=== PATIENT | male | born 1980 | race Caucasian/White ===

== ENCOUNTER 2021-07-26 15:14 | Emergency (ER) | payer OTHER, SELFPAY ==
[2021-07-26 15:27] VITALS: BP 129/75; PULSE 61; RESP 16; TEMP 36.6; O2SAT 100; BMI 23.1
--- NOTE | 2021-07-26 15:33 | DI.RAD.S_ITS ---
PROCEDURE: XR TOE RT MIN 2V INDICATIONS: infection right great toe TECHNIQUE: 3 views of the 1st toe(s) acquired. COMPARISON: None. FINDINGS: Bones: No fractures or dislocations. No suspicious bony lesions. Soft tissues: No suspicious soft tissue densities. Mild soft tissue swelling IMPRESSION: Mild generalized soft tissue swelling without fracture or foreign body. Approved by: Ephraim Pérez M.D. on 07/26/2021 at 15:19
--- NOTE | 2021-07-26 15:41 | ED.SKABFB ---
HPI - Skin/Abscess/Foreign Bdy General Chief complaint: Skin/Abscess/Foreign Body Stated complaint: Infection on RT foot/Toe Time Seen by Provider: 07/26/21 15:36 History of Present Illness HPI narrative: Patient is a 41-year-old male presents with right toe pain and redness. He says it has been ongoing for about 10 days but has progressively gotten more red today he woke up and noticed that he had streaking up most of his lower leg. It does stop below the knee. He denies any fever or chills. No prior history of MRSA. He denies any fever or chills. Related Data Previous Rx's Medication Instructions Recorded cephalexin 500 mg capsule 500 mg PO TID 7 Days #21 cap 07/26/21 Allergies Allergy/AdvReac Type Severity Reaction Status Date / Time No Known Drug Allergies Allergy Verified 07/26/21 15:27 Review of Systems Review of Systems Narrative: GENERAL: Denies chills,fever HEENT: Denies throat pain RESPIRATORY: Denies dyspnea, cough, wheezing CARDIOVASCULAR: Denies chest pain, palpitations GASTROINTESTINAL: Denies nausea, vomiting MUSCULOSKELETAL: Denies extremity pain, injury SKIN: See HPI NEUROLOGIC: Denies weakness, dizziness, headache, numbness 8 point review of systems is negative except for those stated above and HPI Patient History Social History Smoking Status: Never smoker Smoking Status: Never smoker alcohol intake frequency: a few times a week Substance Use Type: does not use Exam Initial Vital Signs Initial Vital Signs: Vital Signs Temperature 97.8 F 07/26/21 15:27 Pulse Rate 61 07/26/21 15:27 Respiratory Rate 16 07/26/21 15:27 Blood Pressure 129/75 07/26/21 15:27 Pulse Oximetry 100 07/26/21 15:27 GENERAL: Well-appearing, well-nourished and in no acute distress. CARDIOVASCULAR: peripheral pulses in tact, cap refill <2 sec RESPIRATORY: No respiratory distress, speaks in full sentences without difficulty EXTREMITIES: Normal range of motion, no clubbing or edema. Neurovascularly intact NEUROLOGICAL: Cranial nerves II through XII grossly intact. Normal gait and speech. SKIN: Right great toe paronychia noted around the cuticle he has streaking up anterior part of his leg Procedures Abscess I/D I&D #1: Site: foot (Big toe) Side (if applicable): right Local Anesthetic: lidocaine 1% Amount of anesthesia used (mL): 2 Technique: incised with #11 blade Amount of fluid expressed (mL): 0.5 Irrigation: No Nerve Block Nerve Block 1: Local Anesthetic: lidocaine 1% Amount of anesthesia used (mL): 2 Side: right Nerve Blocks: digital Procedure Successful: Yes Patient Tolerated Procedure: Well Complications: none Course Orders Ordered: ED Orders 07/26/21 15:33 XR toe RT min 2V Stat 07/26/21 15:50 Complete Blood Count AUTO DIFF Stat Comprehensive Metabolic Panel Stat Lactate (Lactic Acid) Stat Procalcitonin Stat 07/26/21 15:55 Wound Culture and Gram Stain Stat 07/26/21 16:11 Blood Culture Stat Discontinued Medications Sodium Chloride (Normal Saline 0.9%) 1,000 mls @ 1,000 mls/hr IV BOLUS ONE Stop: 07/26/21 16:31 Last Admin: 07/26/21 15:52 Dose: Not Given Documented by: ZAYRA Ceftriaxone Sodium 1,000 mg/ (Sodium Chloride) 100 mls @ 200 mls/hr IV NOW ONE Stop: 07/26/21 15:46 Last Infusion: 07/26/21 17:02 Dose: 0 mls/hr Documented by: Admin: 07/26/21 16:16 Dose: 200 mls/hr Documented by: NATHANIEL Lidocaine HCl (Lidocaine 1% (Pf)) 2 ml SUBCUT NOW ONE Stop: 07/26/21 15:46 Last Admin: 07/26/21 15:58 Dose: 2 ml Documented by: NATHANIEL Vital Signs Vital signs: Vital Signs - 8 hr 07/26/21 15:27 07/26/21 17:28 Temperature 97.8 F 97.7 F Pulse Rate 61 60 Respiratory Rate 16 16 Blood Pressure 129/75 117/65 Pulse Oximetry 100 100 MDM - Skin/Abscess/Foreign Bdy Lab Data Result diagrams: 07/26/21 15:50 07/26/21 15:50 Labs: Lab Results 07/26/21 07/26/21 07/26/21 Range/Units 15:50 15:50 15:50 WBC 6.8 (4.5-11.0) X10^3/uL RBC 4.40 L (4.5-5.9) X10^6/uL Hgb 14.1 (13.5-17.5) g/dL Hct 41.1 (41-53) % MCV 93.4 (80-100) fL MCH 32.0 (26-34) PG MCHC 34.3 (30-36) % RDW 12.2 (11.6-14.8) % Plt Count 141 L (150-400) X10^3/uL Neut % (Auto) 53.5 (50-75) % Lymph % (Auto) 33.8 (25-40) % [place] % (Auto) 9.6 (3-14) % Eos % (Auto) 2.5 (2-4) % Baso % (Auto) 0.6 (0-2) % Neut # (Auto) 3700 (4619-2384) /uL Lymph # (Auto) 2300 (5371-6609) /uL [place] # (Auto) 700 (0-900) /uL Eos # (Auto) 200 (0-450) /uL Baso # (Auto) 0 (0-100) /uL ESR Sodium 139 (137-145) mmol/L Potassium 4.0 (3.4-5.1) mmol/L Chloride 102 (98-107) mmol/L Carbon Dioxide 29 (22-32) mmol/L BUN 15 (9-20) mg/dL Creatinine 0.76 (0.66-1.25) mg/dL Estimated GFR > 60.0 (>60) mL/min BUN/Creatinine Ratio 19.7 (6-22) Glucose 90 (70-100) mg/dL Lactate 0.7 (0.7-2.1) mmol/L Calcium 9.6 (8.4-10.2) mg/dL Total Bilirubin 1.3 (0.2-1.3) mg/dL AST 25 (17-59) IU/L ALT 20 (<50) IU/L Alkaline Phosphatase 76 (38-126) U/L C-Reactive Protein Total Protein 7.5 (6.3-8.2) g/dL Albumin 4.6 (3.5-5.0) g/dL Globulin 2.9 (1.7-4.1) g/dL Albumin/Globulin Ratio 1.6 (1.0-2.8) Lipase Cancelled Procalcitonin 0.04 (<0.5) ng/mL 07/26/21 07/26/21 Range/Units 15:50 15:50 WBC (4.5-11.0) X10^3/uL RBC (4.5-5.9) X10^6/uL Hgb (13.5-17.5) g/dL Hct (41-53) % MCV (80-100) fL MCH (26-34) PG MCHC (30-36) % RDW (11.6-14.8) % Plt Count (150-400) X10^3/uL Neut % (Auto) (50-75) % Lymph % (Auto) (25-40) % [place] % (Auto) (3-14) % Eos % (Auto) (2-4) % Baso % (Auto) (0-2) % Neut # (Auto) (3894-0401) /uL Lymph # (Auto) (6908-2545) /uL [place] # (Auto) (0-900) /uL Eos # (Auto) (0-450) /uL Baso # (Auto) (0-100) /uL ESR Cancelled Sodium (137-145) mmol/L Potassium (3.4-5.1) mmol/L Chloride (98-107) mmol/L Carbon Dioxide (22-32) mmol/L BUN (9-20) mg/dL Creatinine (0.66-1.25) mg/dL Estimated GFR (>60) mL/min BUN/Creatinine Ratio (6-22) Glucose (70-100) mg/dL Lactate (0.7-2.1) mmol/L Calcium (8.4-10.2) mg/dL Total Bilirubin (0.2-1.3) mg/dL AST (17-59) IU/L ALT (<50) IU/L Alkaline Phosphatase (38-126) U/L C-Reactive Protein Cancelled Total Protein (6.3-8.2) g/dL Albumin (3.5-5.0) g/dL Globulin (1.7-4.1) g/dL Albumin/Globulin Ratio (1.0-2.8) Lipase Procalcitonin (<0.5) ng/mL Imaging Data Extremity x-ray #1: Radiologist's Impression: PROCEDURE:? XR TOE RT MIN 2V ? INDICATIONS:? infection right great toe ? TECHNIQUE:? 3 views of the 1st toe(s) acquired.? ? COMPARISON:? None. ? FINDINGS:? ? Bones:? No fractures or dislocations.? No suspicious bony lesions.? ? Soft tissues:? No suspicious soft tissue densities.? Mild soft tissue swelling ? IMPRESSION:? Mild generalized soft tissue swelling without fracture or foreign body. ? ? ? Approved by: Ephraim Pérez M.D. on 07/26/2021 at 15:19? [facility] Narrative Medical decision making narrative: Patient is found to have paronychia on the right big toe. It is I&D there is purulent drainage. He does have a streaking up his leg but overall appears well. He is afebrile he has no leukocytosis. He is given 1 dose of Rocephin in the emergency department. I discussed with him warning signs and when to return to the emergency department. Blood cultures and culture are pending. Discharge Plan Departure Patient Disposition: Home Clinical Impression: Paronychia Instructions: Paronychia Activity Restrictions/Additional Instructions: *You have been diagnosed with paronychia of right big toe *What to do: At this time he actually should start feeling better. We drained some pus out of the area in you are given a dose of IV antibiotics. Continue taking antibiotics as directed. Keep toe clean and dry with soap and water. May apply antibiotic ointment 1-2 times daily *Continue to take medications as directed Keflex 500 mg 3 times a day for 7 days *Follow up with your primary care provider in 2-3 days *Return to ER if you should have increasing redness, fever, increasing streaking or any new, worsening or concerning symptoms Prescriptions: New cephalexin 500 mg capsule 500 mg PO TID 7 Days Qty: 21 RF: 0 Referrals: [facility] [Provider Group]
[2021-07-26] MEDS: LIDOCAINE 1% (PF) 2 ML SUBCUT (15:58)
[2021-07-26 16:00] LABS: Add Manual Diff / Slide Review NO; Basophils Absolute Auto 0 /uL (0-100); Basophils Percent Auto 0.6 % (0-2); Eosinophils Absolute Auto 200 /uL (0-450); Eosinophils Percent Auto 2.5 % (2-4); Hematocrit 41.1 % (41-53); Hemoglobin 14.1 g/dL (13.5-17.5); Lymphocytes Absolute Auto 2300 /uL (1100-4500); Lymphocytes Percent Auto 33.8 % (25-40); Mean Corpuscular HGB Conc 34.3 % (30-36); Mean Corpuscular Volume 93.4 fL (80-100); Monocytes Absolute Auto 700 /uL (0-900); Monocytes Percent Auto 9.6 % (3-14); Neutrophils Absolute Auto 3700 /uL (1500-7000); Neutrophils Percent Auto 53.5 % (50-75); Platelet Count 141 X10^3/uL (150-400); Red Cell Distribution Width 12.2 % (11.6-14.8); White Blood Cell Count 6.8 X10^3/uL (4.5-11.0)
[2021-07-26 16:11] LABS: Alanine Aminotransferase 20 IU/L (<50); Albumin 4.6 g/dL (3.5-5.0); Albumin Globulin Ratio 1.6 (1.0-2.8); Alkaline Phosphatase 76 U/L (38-126); Aspartate Aminotransferase 25 IU/L (17-59); BUN Creatinine Ratio 19.7 (6-22); Bilirubin Total 1.3 mg/dL (0.2-1.3); Blood Urea Nitrogen 15 mg/dL (9-20); Calcium 9.6 mg/dL (8.4-10.2); Carbon Dioxide 29 mmol/L (22-32); Chloride 102 mmol/L (98-107); Estimated Glomerular Filt Rate > 60.0 mL/min (>60); Globulin 2.9 g/dL (1.7-4.1); Glucose 90 mg/dL (70-100); HEMOLYSIS < 15 (0-50); Sodium 139 mmol/L (137-145); Total Protein 7.5 g/dL (6.3-8.2)
[2021-07-26 16:12] LABS: Lactate (Lactic Acid) 0.7 mmol/L (0.7-2.1)
[2021-07-26] MEDS: cefTRIAXone 1,000 MG in SODIUM CHLORIDE 0.9% 100 ML 200 ML IV (16:16)
[2021-07-26 16:28] LABS: Procalcitonin 0.04 ng/mL (<0.5)
[2021-07-26 17:28] VITALS: BP 117/65; PULSE 60; RESP 16; TEMP 36.5; O2SAT 100
[2021-07-27 11:24] LABS: Acinetobacter baumannii Not Detected (Not Detect); Candida albicans Not Detected (Not Detect); Candida glabrata Not Detected (Not Detect); Candida krusei Not Detected (Not Detect); Candida parapsilosis Not Detected (Not Detect); Candida tropicalis Not Detected (Not Detect); E. coli Not Detected (Not Detect); Enterobacter cloacae complex Not Detected (Not Detect); Enterobacteriaceae species Detected (Not Detect); Enterococcus species Not Detected (Not Detect); Haemophilus influenzae Not Detected (Not Detect); KPC (carbapenem-resist gene) Not Detected (Not Detect); Listeria monocytogenes Not Detected (Not Detect); Methicillin-resistant gene Not Detected (Not Detect); Neisseria meningitidis Not Detected (Not Detect); Proteus species Not Detected (Not Detect); Pseudomonas aeruginosa Not Detected (Not Detect); Serratia marcescens Not Detected (Not Detect); Staphylococcus species Not Detected (Not Detect); Streptococcus agalactiae (Gr B Not Detected (Not Detect); Streptococcus pneumonia Not Detected (Not Detect); Streptococcus pyogenes (Gr A) Not Detected (Not Detect); Streptococcus species Not Detected (Not Detect); Vancomycin-rest genes A/B Not Detected (Not Detect)
== END 2021-07-26 17:31 | disposition home or self-care (01) ==
PROVIDERS: Emergency Provider Emergency Medicine
DX: L03.031 Cellulitis of right toe (principal)
CPT/HCPCS: 10060; 36415; 64450; 73660; 80053; 83605; 84145; 85025; 87040; 87070; 87075; 87077; 87150; 87186; 87205; 96365; 99284; J0696

== ENCOUNTER 2021-07-28 22:18 | Emergency (ER) | payer OTHER, SELFPAY ==
[2021-07-28 22:21] VITALS: BP 146/81; PULSE 61; RESP 16; TEMP 36.5; O2SAT 100
[2021-07-28 22:53] LABS: Add Manual Diff / Slide Review NO; Basophils Absolute Auto 0 /uL (0-100); Basophils Percent Auto 0.7 % (0-2); Eosinophils Absolute Auto 200 /uL (0-450); Eosinophils Percent Auto 3.2 % (2-4); Hematocrit 42.8 % (41-53); Hemoglobin 14.6 g/dL (13.5-17.5); Lymphocytes Absolute Auto 2600 /uL (1100-4500); Lymphocytes Percent Auto 48.7 % (25-40); Mean Corpuscular Hemoglobin 31.7 PG (26-34); Mean Corpuscular Volume 93.3 fL (80-100); Monocytes Absolute Auto 600 /uL (0-900); Monocytes Percent Auto 10.9 % (3-14); Neutrophils Absolute Auto 1900 /uL (1500-7000); Neutrophils Percent Auto 36.5 % (50-75); Platelet Count 144 X10^3/uL (150-400); Red Blood Cell Count 4.59 X10^6/uL (4.5-5.9); Red Cell Distribution Width 12.5 % (11.6-14.8); White Blood Cell Count 5.3 X10^3/uL (4.5-11.0)
[2021-07-28 22:56] LABS: Alanine Aminotransferase 42 IU/L (<50); Albumin 4.5 g/dL (3.5-5.0); Albumin Globulin Ratio 1.4 (1.0-2.8); Alkaline Phosphatase 100 U/L (38-126); Aspartate Aminotransferase 42 IU/L (17-59); BUN Creatinine Ratio 28.6 (6-22); Blood Urea Nitrogen 20 mg/dL (9-20); Carbon Dioxide 30 mmol/L (22-32); Chloride 103 mmol/L (98-107); Estimated Glomerular Filt Rate > 60.0 mL/min (>60); Globulin 3.2 g/dL (1.7-4.1); Glucose 99 mg/dL (70-100); HEMOLYSIS 21 (0-50); Lactate (Lactic Acid) 1.1 mmol/L (0.7-2.1); Lipase 80 U/L (23-300); Sodium 141 mmol/L (137-145); Total Protein 7.7 g/dL (6.3-8.2)
[2021-07-28 23:13] LABS: Procalcitonin 0.05 ng/mL (<0.5)
--- NOTE | 2021-07-28 23:50 | ED_ITS ---
HPI - Skin/Abscess/Foreign Bdy General Chief complaint: Skin/Abscess/Foreign Body Stated complaint: RIGHT FOOT INFECTION Time Seen by Provider: 07/28/21 22:47 Source: patient Mode of arrival: Ambulatory Limitations: no limitations History of Present Illness HPI narrative: 41-year-old male with complaint of right great toe pain and redness. Patient has had about 10 days of symptoms but had got more red and had streaking up his leg this stops below the knee. He denies any fevers or chills. Patient has not had any additional symptoms. He was seen here had a dose IV antibiotics and started on cephalexin. Patient did have an I&D when he was here on the . He states the redness improved the 1st 24 hours and has since then seem more angry at the when he noticed some streaking back of his leg although he does not appreciate as obviously now. He has continued to be afebrile. He denies any other systemic symptoms. He has quite a bit of pain at the toe itself. He denies any other medical issues. No daily medications. No allergies to medications. He has not had similar symptoms in the remote past. Related Data Previous Rx's Medication Instructions Recorded cephalexin 500 mg capsule 500 mg PO TID 7 Days #21 cap 07/26/21 sulfamethoxazole 800 1 tab PO Q12H #20 tab 07/29/21 mg-trimethoprim 160 mg tablet (Bactrim DS) sulfamethoxazole 800 1 tab PO Q12H #20 tab 07/29/21 mg-trimethoprim 160 mg tablet (Bactrim DS) Allergies Allergy/AdvReac Type Severity Reaction Status Date / Time No Known Drug Allergies Allergy Verified 07/26/21 15:27 Review of Systems Review of Systems ROS Unobtainable: All systems reviewed & are unremarkable except as noted in HPI and below Patient History Social History Smoking Status: Never smoker Smoking Status: Never smoker alcohol intake frequency: a few times a week Substance Use Type: does not use Exam Narrative Exam Narrative: GENERAL: Alert and oriented x three, male in mild distress. HEENT: Head normocephalic, atraumatic, EOMI, pupils reactive, face symmetric, moist mucous membranes NECK: Supple, full range of motion CARDIOVASCULAR: Regular rate and rhythm without murmurs, rubs or gallops. RESPIRATORY: Breath sounds equal bilaterally, no wheezes rales or rhonchi. ABDOMEN: Soft, nontender. Normoactive bowel sounds all 4 quadrants. No guarding or rebound, rigidity, no mass : No CVA tenderness EXTREMITIES: Normal range of motion, no clubbing. Patient has swelling of the great toe on the right, along the edge of the nail there is erythema with scant amount of purulent discharge although I am not able to express any additional, there is some swelling of the toe, I do not appreciate any erythema tracking up the leg at this time. Patient has cap refill less than 2 seconds with normal sensation throughout all 5 toes. 2+ dorsalis pedis pulse. Neurovascularly intact NEUROLOGICAL: Cranial nerves II through XII grossly intact. Moving all extremities SKIN: Warm, dry, no petechiae, no rashes or lesions other than noted above. Initial Vital Signs Initial Vital Signs: Vital Signs Temperature 97.7 F 07/28/21 22:21 Pulse Rate 61 07/28/21 22:21 Respiratory Rate 16 07/28/21 22:21 Blood Pressure 146/81 H 07/28/21 22:21 Pulse Oximetry 100 07/28/21 22:21 Course Orders Ordered: ED Orders 07/28/21 22:32 Complete Blood Count AUTO DIFF Stat Comprehensive Metabolic Panel Stat Lactate (Lactic Acid) Stat Lipase Stat Procalcitonin Stat 07/28/21 22:55 Blood Culture Stat 07/29/21 00:01 XR toe RT min 2V Stat Discontinued Medications Hydrocodone Bitart/Acetaminophen (Hydrocodone/Acet 5/325 Prepack) 1 bottle MISC SEEINSTR ONE Stop: 07/29/21 01:18 Last Admin: 07/29/21 02:05 Dose: 1 bottle Documented by: BRIDGET Levofloxacin (Levaquin) 750 mg in 150 mls @ 100 mls/hr IV NOW ONE Stop: 07/29/21 01:35 Last Infusion: 07/29/21 02:05 Dose: 0 mls/hr Documented by: Admin: 07/29/21 00:13 Dose: 100 mls/hr Documented by: SUSANA Ketorolac Tromethamine (Ketorolac 30 Mg/Ml Vial) 15 mg IV NOW ONE Stop: 07/29/21 00:02 Last Admin: 07/29/21 00:24 Dose: 15 mg Documented by: MISSAEL Trimethoprim/Sulfamethoxazole (Trimeth/Sulfa 160/800 Prepack) 1 bottle MISC SEEINSTR ONE Stop: 07/29/21 01:18 Trimethoprim/Sulfamethoxazole (Trimeth/Sulfa 160/800 (Ds) Tablet) 1 tab PO NOW ONE Stop: 07/29/21 01:39 Last Admin: 07/29/21 02:05 Dose: 1 tab Documented by: BRIDGET Reevaluation(s) Reevaluation #1: Patient has not had any new changes. Reviewed patient's culture from his toe I&D on 07/26/21. Discussed with patient he is comfortable with his reassuring labs and physical exam I would try a secondary antibiotic based on his culture and sensitivities. Patient feels comfortable with this plan. He was given 1 dose of IV antibiotics, prescription for oral antibiotic and strict return precautions. On a bowel were not able to express any additional fluid and repeat I&D was deferred. Vital Signs Vital signs: Vital Signs - 8 hr 07/28/21 22:21 07/29/21 02:16 Temperature 97.7 F Pulse Rate 61 58 L Respiratory Rate 16 16 Blood Pressure 146/81 H 123/76 Pulse Oximetry 100 100 MDM - Skin/Abscess/Foreign Bdy Lab Data Result diagrams: 07/28/21 22:32 07/28/21 22:32 Labs: Lab Results 07/28/21 07/28/21 07/28/21 Range/Units 22:32 22:32 22:32 WBC 5.3 (4.5-11.0) X10^3/uL RBC 4.59 (4.5-5.9) X10^6/uL Hgb 14.6 (13.5-17.5) g/dL Hct 42.8 (41-53) % MCV 93.3 (80-100) fL MCH 31.7 (26-34) PG MCHC 34.0 (30-36) % RDW 12.5 (11.6-14.8) % Plt Count 144 L (150-400) X10^3/uL Neut % (Auto) 36.5 L (50-75) % Lymph % (Auto) 48.7 H (25-40) % [place] % (Auto) 10.9 (3-14) % Eos % (Auto) 3.2 (2-4) % Baso % (Auto) 0.7 (0-2) % Neut # (Auto) 1900 (1803-1626) /uL Lymph # (Auto) 2600 (8073-9023) /uL [place] # (Auto) 600 (0-900) /uL Eos # (Auto) 200 (0-450) /uL Baso # (Auto) 0 (0-100) /uL Sodium 141 (137-145) mmol/L Potassium 4.0 (3.4-5.1) mmol/L Chloride 103 (98-107) mmol/L Carbon Dioxide 30 (22-32) mmol/L BUN 20 (9-20) mg/dL Creatinine 0.70 (0.66-1.25) mg/dL Estimated GFR > 60.0 (>60) mL/min BUN/Creatinine Ratio 28.6 H (6-22) Glucose 99 (70-100) mg/dL Lactate 1.1 (0.7-2.1) mmol/L Calcium 10.0 (8.4-10.2) mg/dL Total Bilirubin 1.0 (0.2-1.3) mg/dL AST 42 (17-59) IU/L ALT 42 (<50) IU/L Alkaline Phosphatase 100 (38-126) U/L Total Protein 7.7 (6.3-8.2) g/dL Albumin 4.5 (3.5-5.0) g/dL Globulin 3.2 (1.7-4.1) g/dL Albumin/Globulin Ratio 1.4 (1.0-2.8) Lipase 80 (23-300) U/L Procalcitonin 0.05 (<0.5) ng/mL Imaging Data Extremity x-ray #1: Radiologist's Impression: [address] [address] XRay Report Signed Patient: Aryan Hauser MR#: [id number] : 1980 Acct:[id number] Age/Sex: 41 / M Date of Service: 07/29/21 Loc: ED Accession Number: [id number] ?? Procedure: XR toe RT min 2V Ordering Provider: Mary Velarde D.O. PROCEDURE:? XR TOE RT MIN 2V ? INDICATIONS:? infection, great toe right ? TECHNIQUE:? 3 views of the 1st toe(s) acquired.? ? COMPARISON:? [facility], CR, XR TOE RT MIN 2V, 07/26/2021, 15:36. ? FINDINGS:? ? Bones:? No fractures or dislocations.? No osseous erosion identified.? No suspi cious bony lesions.? ? Soft tissues:? No suspicious soft tissue densities.? ? IMPRESSION:? No acute osseous abnormality identified. ? Consider follow-up MRI or three-phase bone scan ? Dictated by: French Gaines M.D. on 07/29/2021 at 0:25 ? ? Approved by: French Gaines M.D. on 07/29/2021 at 0:27 MDM Narrative Medical decision making narrative: This is a 41-year-old male who comes with recent paronychia which had been present 10 days before he was seen in the emergency department started antibiotics. Patient states he had some redness tracking up his leg which is less obvious at this time. He did have a culture which does show some resistance possibly to his antibiotic that he was discharged home on. He had 1 blood culture out of several that was positive was a different organism and I suspect more likely contaminant as he has reassuring labs, vitals and exam otherwise. At this time plan to try an alternative oral a ntibiotic, have patient return for recheck if not improving and at that time he required admission for failed outpatient oral antibiotics. We did evaluate with bedside ultrasound unable to ambulate which any additional fluid collection or express any on palpate he andrews with any fluctuance. Discharge Plan Departure Patient Disposition: Home Clinical Impression: Cellulitis of great toe, Paronychia Instructions: DI for Cellulitis -- Child Activity Restrictions/Additional Instructions: Your culture from the I&D of your toe suggest you would benefit from a new antibiotic. There is no obvious fluid accumulation that I can drain at this time. Take antibiotics as prescribed. Stop the cephalexin and start your new antibiotic. You may take pain medication as prescribed. Take 1 tablet every 6 hours as needed. This medication can make you sleepy do not drive, perform hazardous activities or make any major decisions while taking it. This medication will make you constipated please take a stool softener once to twice daily until stools are soft and regular. Prescription sent to [facility] pharmacy You did have a single positive blood culture but this was a different bacteria then your culture from your infection and not noted in her other cultures I believe this is likely a contaminant. Your cultures were repeated today. Please return if you develop fevers, increasing redness, swelling, redness streaking up your leg, new numbness, tingling or weakness or other new skin or color changes. Prescriptions: New sulfamethoxazole-trimethoprim [Bactrim DS] 800-160 mg tablet 1 tab PO Q12H Qty: 20 RF: 0 sulfamethoxazole-trimethoprim [Bactrim DS] 800-160 mg tablet 1 tab PO Q12H Qty: 20 RF: 0 No Action cephalexin 500 mg capsule 500 mg PO TID 7 Days Qty: 21 RF: 0
--- NOTE | 2021-07-29 00:01 | DI.RAD.S_ITS ---
PROCEDURE: XR TOE RT MIN 2V INDICATIONS: infection, great toe right TECHNIQUE: 3 views of the 1st toe(s) acquired. COMPARISON: [facility], CR, XR TOE RT MIN 2V, 07/26/2021, 15:36. FINDINGS: Bones: No fractures or dislocations. No osseous erosion identified. No suspicious bony lesions. Soft tissues: No suspicious soft tissue densities. IMPRESSION: No acute osseous abnormality identified. Consider follow-up MRI or three-phase bone scan Dictated by: French Gaines M.D. on 07/29/2021 at 0:25 Approved by: French Gaines M.D. on 07/29/2021 at 0:27
[2021-07-29] MEDS: levoFLOXacin 750 MG/150 ML PIGGYBACK 100 MG IV (00:13)
[2021-07-29] MEDS: KETOROLAC 30 MG/ML VIAL 15 MG IV (00:24)
[2021-07-29] MEDS: TRIMETH/SULFA 160/800 (DS) TABLET 1 TAB PO (02:05)
[2021-07-29] MEDS: HYDROCODONE/ACET 5/325 PREPACK 1 BOTTLE MISC (02:05)
[2021-07-29 02:16] VITALS: BP 123/76; PULSE 58; RESP 16; O2SAT 100
== END 2021-07-29 02:10 | disposition home or self-care (01) ==
PROVIDERS: Emergency Provider Emergency Medicine
DX: L03.031 Cellulitis of right toe (principal)
CPT/HCPCS: 36415; 73660; 80053; 83605; 83690; 84145; 85025; 87040; 96365; 96366; 96375; 99284; J1885; J1956

== ENCOUNTER → 2021-09-04 08:32 | Outpatient (CLI) | payer OTHER, SELFPAY ==
--- NOTE | 2021-09-04 08:34 | DI.RAD.S_ITS ---
PROCEDURE: FL SHOULDER INJECTION MR/CT RT INDICATIONS: RIGHT SHOULDER PAIN COMPARISON: [facility], CR, XR TOE RT MIN 2V, 07/29/2021, 0:10. TECHNIQUE: The indications, alternatives, benefits, risks, and complications of the procedure were explained to the patient. Written informed consent was obtained and placed in the chart. The shoulder was examined fluoroscopically and a site for needle placement chosen for entry into the glenohumeral joint from an anterior approach. The skin was prepped and draped in a sterile fashion, and 1% lidocaine infiltrated from skin down to joint capsule. A spinal needle was inserted into the glenohumeral joint, and a small amount of iodinated contrast media injected to confirm intra-articular placement of the needle tip. This was followed by approximately 12 mL dilute solution of a gadolinium containing MR contrast agent. The needle was removed and a dressing was applied. The patient was given postprocedural instructions and sent to the MR suite for MR imaging. FINDINGS: A single fluoroscopic spot image demonstrates intra-articular location of injected iodinated contrast. IMPRESSION: Successful fluoroscopically guided administration of dilute Gadolinium solution into the shoulder joint for MR arthrogram. Dictated by: Angelo Palacios M.D. on 09/04/2021 at 9:03 Approved by: Angelo Palacios M.D. on 09/04/2021 at 9:04
--- NOTE | 2021-09-04 08:34 | DI.MRI.S_ITS ---
PROCEDURE: MR SHOULDER RT W CON INDICATIONS: RIGHT SHOULDER PAIN TECHNIQUE: After the administration of 12 mL of dilute intra-articular Gadolinium contrast, oblique coronal T1 and T2 spin echo with fat saturation, oblique sagittal T1 spin echo with and without fat saturation, oblique sagittal T2 fast spin echo with fat saturation, axial T1 spin echo with fat saturation through the shoulder. COMPARISON: None. FINDINGS: Image quality: Excellent. Rotator cuff: Mild infraspinatus and supraspinatus tendinopathy with interstitial tear. The teres minor and subscapularis tendons appear intact throughout. No rotator cuff muscle atrophy on sagittal images. Bones and bursae: No bone marrow contusions or fractures. No acromioclavicular joint degeneration. The acromion demonstrates conventional anatomy, without an os acromiale. Capsule and soft tissues: The labrum and glenohumeral ligaments appear intact. The long head of the biceps tendon demonstrates normal location and morphology. The rotator interval appears normal, without fibrosis. The coracohumeral and coracoclavicular ligaments are intact. No intra-articular bodies. IMPRESSION: 1. Mild infraspinatus and supraspinatus tendinopathy with interstitial tear. Dictated by: Jose Boo M.D. on 09/04/2021 at 13:19 Approved by: Jose Boo M.D. on 09/04/2021 at 13:24
== END ==
DX: M75.101 Unspecified rotator cuff tear or rupture of right shoulder, not specified as traumatic (principal); M25.511 Pain in right shoulder
CPT/HCPCS: 23350; 73222; 77002

== ENCOUNTER → 2022-09-08 12:11 | Outpatient (CLI) | payer OTHER, SELFPAY ==
[2022-09-08 13:21] LABS: Add Manual Diff / Slide Review NO; Basophils Absolute Auto 100 /uL (0-100); Basophils Percent Auto 1.3 % (0-2); Eosinophils Absolute Auto 200 /uL (0-450); Eosinophils Percent Auto 4.4 % (2-4); Hematocrit 40.1 % (41-53); Hemoglobin 13.6 g/dL (13.5-17.5); Lymphocytes Absolute Auto 2200 /uL (1100-4500); Mean Corpuscular HGB Conc 33.9 % (30-36); Mean Corpuscular Hemoglobin 31.2 PG (26-34); Mean Corpuscular Volume 92.1 fL (80-100); Monocytes Absolute Auto 300 /uL (0-900); Monocytes Percent Auto 7.4 % (3-14); Neutrophils Absolute Auto 1800 /uL (1500-7000); Neutrophils Percent Auto 39.9 % (50-75); Platelet Count 152 X10^3/uL (150-400); Red Blood Cell Count 4.35 X10^6/uL (4.5-5.9); Red Cell Distribution Width 12.9 % (11.6-14.8); White Blood Cell Count 4.6 X10^3/uL (4.5-11.0)
[2022-09-08 13:51] LABS: Alanine Aminotransferase 35 IU/L (<50); Albumin 4.5 g/dL (3.5-5.0); Albumin Globulin Ratio 1.6 (1.0-2.8); Alkaline Phosphatase 69 U/L (38-126); Aspartate Aminotransferase 33 IU/L (17-59); BUN Creatinine Ratio 22.7 (6-22); Bilirubin Total 1.6 mg/dL (0.2-1.3); Blood Urea Nitrogen 17 mg/dL (9-20); Calcium 9.5 mg/dL (8.4-10.2); Carbon Dioxide 30 mmol/L (22-32); Chloride 103 mmol/L (98-107); Cholesterol 188 mg/dL (140-199); Estimated Glomerular Filt Rate > 60 mL/min (>60); Globulin 2.8 g/dL (1.7-4.1); Glucose 83 mg/dL (70-100); HDL Cholesterol 60 mg/dL (40-60); HEMOLYSIS < 15 (0-50); LDL Cholesterol Calculated 118 mg/dL (<100); Potassium 4.3 mmol/L (3.4-5.1); Sodium 140 mmol/L (137-145); Total Protein 7.3 g/dL (6.3-8.2); Triglycerides 48 mg/dL (35-150)
== END ==
PROVIDERS: PCP Family Medicine; Referring Provider Family Medicine; Visit Provider Family Medicine
DX: Z00.00 Encounter for general adult medical examination without abnormal findings (principal); B35.1 Tinea unguium
CPT/HCPCS: 36415; 80053; 80061; 85025

== ENCOUNTER → 2022-12-02 16:30 | Outpatient (CLI) | payer OTHER, SELFPAY ==
[2022-12-02 17:40] LABS: Hematocrit 39.3 % (41-53); Hemoglobin 13.8 g/dL (13.5-17.5); Mean Corpuscular Hemoglobin 31.4 PG (26-34); Mean Corpuscular Volume 89.8 fL (80-100); Platelet Count 149 X10^3/uL (150-400); Red Blood Cell Count 4.38 X10^6/uL (4.5-5.9); Red Cell Distribution Width 12.5 % (11.6-14.8)
[2022-12-02 18:21] LABS: Alanine Aminotransferase 27 IU/L (<50); Albumin 4.6 g/dL (3.5-5.0); Albumin Globulin Ratio 1.7 (1.0-2.8); Alkaline Phosphatase 78 U/L (38-126); Aspartate Aminotransferase 31 IU/L (17-59); BUN Creatinine Ratio 27.4 (6-22); Bilirubin Total 1.4 mg/dL (0.2-1.3); Blood Urea Nitrogen 20 mg/dL (9-20); Calcium 9.2 mg/dL (8.4-10.2); Carbon Dioxide 27 mmol/L (22-32); Chloride 100 mmol/L (98-107); Estimated Glomerular Filt Rate > 60 mL/min (>60); Globulin 2.7 g/dL (1.7-4.1); Glucose 94 mg/dL (70-100); HEMOLYSIS < 15 (0-50); Potassium 4.1 mmol/L (3.4-5.1); Sodium 139 mmol/L (137-145); Total Protein 7.3 g/dL (6.3-8.2)
== END ==
PROVIDERS: PCP Family Medicine; Referring Provider Nurse Practitioner Family; Visit Provider Nurse Practitioner Family
DX: R07.1 Chest pain on breathing (principal); K21.9 Gastro-esophageal reflux disease without esophagitis
CPT/HCPCS: 36415; 80053; 85027

== ENCOUNTER → 2022-12-02 16:50 | Outpatient (CLI) | payer OTHER, SELFPAY ==
--- NOTE | 2022-12-02 16:52 | DI.RAD.S_ITS ---
PROCEDURE: XR CHEST 2V INDICATIONS: pain with inspiration TECHNIQUE: 2 views of the chest were acquired. COMPARISON: None. FINDINGS: Surgical changes and devices: None. Lungs and pleura: Lungs are clear. No pleural effusions or pneumothorax. Mediastinum: Mediastinal contours are normal. Heart size is normal. Bones and chest wall: No suspicious bony abnormalities. Soft tissues appear unremarkable. IMPRESSION: No acute process. Dictated by: Roshni Bolden M.D. on 12/03/2022 at 10:41 Approved by: Roshni Bolden M.D. on 12/03/2022 at 10:41
== END ==
PROVIDERS: PCP Family Medicine; Referring Provider Nurse Practitioner Family; Visit Provider Nurse Practitioner Family
DX: R07.1 Chest pain on breathing (principal); K21.9 Gastro-esophageal reflux disease without esophagitis
CPT/HCPCS: 36415; 71046; 80053; 85027

== ENCOUNTER → 2023-07-08 09:15 | Outpatient (CLI) | payer OTHER, SELFPAY ==
[2023-07-08 10:45] LABS: Add Manual Diff / Slide Review NO; Basophils Absolute Auto 0 /uL (0-100); Basophils Percent Auto 1.2 % (0-2); Eosinophils Absolute Auto 200 /uL (0-450); Eosinophils Percent Auto 3.8 % (2-4); Hematocrit 41.7 % (41-53); Hemoglobin 14.5 g/dL (13.5-17.5); Lymphocytes Absolute Auto 1600 /uL (1100-4500); Lymphocytes Percent Auto 40.5 % (25-40); Mean Corpuscular HGB Conc 34.8 % (30-36); Monocytes Absolute Auto 300 /uL (0-900); Monocytes Percent Auto 8.5 % (3-14); Neutrophils Absolute Auto 1900 /uL (1500-7000); Platelet Count 136 X10^3/uL (150-400); Red Blood Cell Count 4.53 X10^6/uL (4.5-5.9); Red Cell Distribution Width 12.9 % (11.6-14.8); White Blood Cell Count 4.1 X10^3/uL (4.5-11.0)
[2023-07-08 10:52] LABS: HEMOLYSIS < 15 (0-50); Iron 171 ug/dL (49-181)
[2023-07-08 10:53] LABS: Alanine Aminotransferase 29 IU/L (<50); Albumin 4.5 g/dL (3.5-5.0); Albumin Globulin Ratio 1.6 (1.0-2.8); Alkaline Phosphatase 63 U/L (38-126); Aspartate Aminotransferase 32 IU/L (17-59); BUN Creatinine Ratio 19.7 (6-22); Bilirubin Total 2.4 mg/dL (0.2-1.3); Blood Urea Nitrogen 15 mg/dL (9-20); Calcium 9.6 mg/dL (8.4-10.2); Carbon Dioxide 28 mmol/L (22-32); Chloride 101 mmol/L (98-107); Estimated Glomerular Filt Rate > 60 mL/min (>60); Globulin 2.9 g/dL (1.7-4.1); Glucose 95 mg/dL (70-100); HEMOLYSIS < 15 (0-50); Potassium 4.6 mmol/L (3.4-5.1); Sodium 138 mmol/L (137-145); Total Protein 7.4 g/dL (6.3-8.2)
[2023-07-08 11:06] LABS: Percent Iron Saturation 50 % (20-50); Total Iron Binding Capacity 345 ug/dL (261-462); Transferrin 247 mg/dL (206-381)
[2023-07-08 11:41] LABS: Vitamin B12 261 pg/mL (239-931)
== END ==
PROVIDERS: PCP Family Medicine; Referring Provider Family Medicine; Visit Provider Family Medicine
DX: K21.9 Gastro-esophageal reflux disease without esophagitis (principal); Z00.00 Encounter for general adult medical examination without abnormal findings
CPT/HCPCS: 36415; 80053; 82607; 83540; 83550; 85025

== ENCOUNTER → 2023-07-15 06:41 | Outpatient (CLI) | payer OTHER, SELFPAY ==
--- NOTE | 2023-07-15 06:42 | DI.US.S_ITS ---
PROCEDURE: US ABDOMEN LIMITED INDICATIONS: ELEVATED BILIRUBIN, RUQ ABDOMEN PAIN TECHNIQUE: Real-time scanning was performed of the abdominal and retroperitoneal organs, with image documentation. COMPARISON: None. FINDINGS: Liver: Liver is normal in size and homogeneous in echotexture. Gallbladder: Unremarkable. Biliary ducts: Intrahepatic bile ducts are non-dilated. Extrahepatic bile duct caliber measures 2 mm. Normal is 6-7 mm or less in diameter, or 10 mm or less post-cholecystectomy. Pancreas: Obscured by bowel gas. Miscellaneous: No free abdominal fluid. IMPRESSION: Normal gallbladder. No biliary dilation. Dictated by: Hernando San M.D. on 07/15/2023 at 9:46 Approved by: Hernando San M.D. on 07/15/2023 at 9:48
== END ==
PROVIDERS: PCP Family Medicine; Referring Provider Family Medicine; Visit Provider Family Medicine
DX: R17 Unspecified jaundice (principal)
CPT/HCPCS: 76705

== ENCOUNTER 2024-06-07 07:19 | Emergency (ER) | payer OTHER, SELFPAY ==
[2024-06-07 07:27] VITALS: BP 147/69; PULSE 68; RESP 14; TEMP 36.3; O2SAT 99; BMI 25.0
--- NOTE | 2024-06-07 07:31 | DI.US.S_ITS ---
PROCEDURE: US PERIPH VENOUS LOW EXTREM LT INDICATIONS: LLE pain / discoloration TECHNIQUE: Real-time imaging, as well as color and pulse Doppler interrogation, were performed of the lower extremity deep veins from the inguinal ligament to the popliteal fossa, with documentation of the visualized calf veins. COMPARISON: None. FINDINGS: The common femoral, femoral, popliteal, and the visualized calf veins are normally compressible, and free of intraluminal thrombus. Color and pulse Doppler demonstrate normal phasic intraluminal flow. There is normal augmentation response to distal compression maneuver. IMPRESSION: Negative left lower extremity duplex venous ultrasound for DVT. Dictated by: Slick Kelly M.D. on 06/07/2024 at 8:34 Approved by: Slick Kelly M.D. on 06/07/2024 at 8:34
[2024-06-07 08:39] VITALS: PULSE 70
--- NOTE | 2024-06-07 08:51 | ED.EXTPRO ---
HPI - Extremity Problem General Chief complaint: Extremity Problem,Nontraumatic Stated complaint: left leg ruptured tendion Time Seen by Provider: 06/07/24 08:46 Source: patient Mode of arrival: Ambulatory History of Present Illness HPI Narrative: Patient here for continued left lateral ankle pain. He was trail running 3 weeks ago and rolled his ankle across a tree root. Was seen at a local urgent care. No x-rays were done. Was given Brian wrap only and crutches. He followed up today as instructed. He denies denies denies any Achilles tendon pain or injury. Is the lateral malleolus where his pain and swelling has been. He has been able to bear weight but has a limp. He is using crutches well. No numbness tingling weakness. No calf pain. No shortness a breath or chest pain. Knee to toes exposed on the left side. Mild tenderness and edema to the lateral malleolus. Able to flex and extend at the ankle without any difficulty. Nontender Achilles tendon. Calf soft nontender no palpable cords. Negative Homans and Barnes test. Related Data Home Medications Medication Instructions Recorded Confirmed No Known Home Medications 06/07/24 06/07/24 Allergies Allergy/AdvReac Type Severity Reaction Status Date / Time No Known Drug Allergies Allergy Verified 06/07/24 07:16 Review of Systems Review of Systems Narrative: GENERAL: negative chills, fatigue, malaise, fever, sweats. HEENT: negative sinus pain, ear pain, sore throat RESPIRATORY: negative dyspnea, cough CARDIOVASCULAR: negative chest pain, palpitations GASTROINTESTINAL: negative nausea, vomiting, abdominal pain : negative dysuria, frequency, hematuria MUSCULOSKELETAL: Positive muscle or bony pain SKIN: negative rash, skin lesions NEUROLOGIC: negative weakness, numbness ROS Unobtainable: All systems reviewed & are unremarkable except as noted in HPI and below Patient History Medical History Well adult exam Costochondritis Allergies (~2009) Tinnitus (~2019) Kidney stones (~2014) GERD (gastroesophageal reflux disease) (~2019) Preventative health care Onychomycosis Surgical History History of photorefractive keratectomy (PRK) (~2013) Family History Grandfather No problems noted. Social History Smoking Status: Never smoker Smoking Status: Never smoker alcohol intake frequency: a few times a week Substance Use Type: does not use Exam Narrative Exam Narrative: GENERAL: in no distress, not toxic not dyspneic HEAD: Normocephalic. EXTREMITIES: No gross deformities. Examination left lower extremity, knee toes. Nontender Achilles tendon. Negative Homans test negative Barnes test. Renteria test intact. Achilles tendon is nontender. Calf is nontender. Calf is soft and warm. No gross bruising seen. Mild tenderness to the lateral malleolus. With mild edema. No bruising seen. Patient able to flex and extend at the ankle. Foot warm soft and pink strong pedal pulse brisk cap refills light touch intact to foot and toes. It wiggles toes. NEURO: AOx4. Clear speech SKIN: Warm and dry PSYCH: Not anxious, is cooperative Initial Vital Signs Initial Vital Signs: Vital Signs Temperature 97.4 F L 06/07/24 07:27 Pulse Rate 68 06/07/24 07:27 Respiratory Rate 14 06/07/24 07:27 Blood Pressure 147/69 H 06/07/24 07:27 Pulse Oximetry 99 06/07/24 07:27 Oxygen Delivery Method Room Air 06/07/24 07:27 Procedures Orthopedic Splinting/Casting Injury #1: Time of procedure: 10:20 Side: left Lower Extremity Injury Location: ankle Lower Extremity Immobilizer: posterior splint and stirrup splint Other Orthopedic Equipment: other (Patient already has crutches) Post splinting neuro exam: intact Post splinting vascular exam: intact Placed by: Nursing Course Orders Ordered: ED Orders 06/07/24 07:31 US periph venous low extrem lt Stat 06/07/24 08:51 XR ankle LT min 3V Stat Vital Signs Vital signs: Vital Signs - 8 hr 06/07/24 07:27 06/07/24 08:39 Temperature 97.4 F L Pulse Rate 68 Pulse Rate [Left Dorsalis Pedis] 70 Respiratory Rate 14 Blood Pressure 147/69 H Pulse Oximetry 99 Oxygen Delivery Method Room Air MDM - Extremity (Nontraumatic) Imaging Data US - DVT: Radiologist's Impression: [address] [address] Ultrasound Report Signed Patient: Aryan Dhaliwal MR#: [id number] : 1980 Acct:[id number] Age/Sex: 43 / M Date of Service: 06/07/24 Loc: ED Accession Number: [id number] Procedure: US periph venous low extrem lt Ordering Provider: Adilson Cerda MD PROCEDURE: US PERIP VENOUS LOW EXTREM LT INDICATIONS: LLE pain / discoloration TECHNIQUE: Real-time imaging, as well as color and pulse Doppler interrogation, were performed of the lower extremity deep veins from the inguinal ligament to the popliteal fossa, with documentation of the visualized calf veins. COMPARISON: None. FINDINGS: The common femoral, femoral, popliteal, and the visualized calf veins are normally compressible, and free of intraluminal thrombus. Color and pulse Doppler demonstrate normal phasic intraluminal flow. There is normal augmentation response to distal compression maneuver. IMPRESSION: Negative left lower extremity duplex venous ultrasound for DVT. Dictated by: Slick Kelly M.D. on 06/07/2024 at 8:34 Approved by: Slick Kelly M.D. on 06/07/2024 at 8:34 Extremity x-ray #1: Radiologist's Impression: [address] [address] XRay Report Signed Patient: Aryan Dhaliwal MR#: [id number] : 1980 Acct:[id number] Age/Sex: 43 / M Date of Service: 06/07/24 Loc: ED Accession Number: [id number] Procedure: XR ankle LT min 3V Ordering Provider: Adilson Cerda MD PROCEDURE: XR ANKLE LT MIN 3V INDICATIONS: pain/injury TECHNIQUE: 3 views of the ankle were acquired. COMPARISON: None. FINDINGS: Bones: Subtle horizontal fracture, tip of lateral malleolus. Ankle mortise is normally aligned. No suspicious bony lesions. Soft tissues: No tibiotalar joint effusion. Lateral soft tissue swelling. Achilles tendon appears normal. IMPRESSION: Horizontal fracture, tip of lateral malleolus. Dictated by: Slick Kelly M.D. on 06/07/2024 at 10:05 Approved by: Slick Kelly M.D. on 06/07/2024 at 10:06 [facility] Narrative Medical decision making narrative: Patient here for continued left lateral ankle pain. He was trail running 3 weeks ago and rolled his ankle across a tree root. Was seen at a local urgent care. No x-rays were done. Was given Brian wrap only and crutches. He followed up today as instructed. He denies denies denies any Achilles tendon pain or injury. Is the lateral malleolus where his pain and swelling has been. He has been able to bear weight but has a limp. He is using crutches well. No numbness tingling weakness. No calf pain. No shortness a breath or chest pain. Knee to toes exposed on the left side. Mild tenderness and edema to the lateral malleolus. Able to flex and extend at the ankle without any difficulty. Nontender Achilles tendon. Calf soft nontender no palpable cords. Negative Homans and Barnes test. After history and exam, x-ray left ankle ultrasound left leg [facility] Medical records reviewed: No recent visit for this complaint here. Differential considered: Includes but not limited to ankle fracture ankle sprain Imaging studies independently reviewed: Ultrasound left leg no DVT, x-ray left ankle lateral malleolar fracture Consultations: Orthopedic referral given Treatments: None indicated at this time Re-evaluations: 10:17 a.m.. Updated patient results. Tolerated splinting very well. Referral for Orthopedics provided. Return precautions reviewed. Nontoxic at discharge. Pain is controlled. He understands treatment plan and follow up with Orthopedic referral. Nontoxic at discharge. He desires discharge home. Discussion: Appropriate for discharge home exam is reassuring. Patient was placed in a splint and has crutches. Orthopedic referral provided. Pain is controlled. Nontoxic at discharge. Ankle and foot and leg is neurovascularly intact. He desires discharge home Diagnosis: Ankle fracture Discharge Plan Departure Patient Disposition: Home Clinical Impression: Ankle fracture, left Qualifiers: Encounter type: initial encounter Fracture type: closed Qualified Code(s): S82.892A - Other fracture of left lower leg, initial encounter for closed fracture Instructions: DI for Ankle Fracture Activity Restrictions/Additional Instructions: Please call provided orthopedic office today for follow up within a week. You do have an ankle fracture. Please keep in splint and use crutches, nonweightbearing until office appointment time. Please elevate leg and foot when at rest. May continue Tylenol or ibuprofen for pain. No blood clot was seen in your leg by ultrasound. X-ray did show fracture of the ankle. Return if worse if any questions or concerns Prescriptions: No Action No Known Home Medications Referrals: Alex Barroso DO [Primary Care Provider] - Shanti Tompkins MD [Physician] - Stand Alone Forms: Patient Portal/API
--- NOTE | 2024-06-07 10:02 | PC.NURSE ---
Posterior splint with stirrup applied to left lower leg. Dr Cerda checked splint. CMS intact. Pt reports comfort with splint
[2024-06-07 10:26] VITALS: BP 121/78; PULSE 56; RESP 16; O2SAT 98
== END 2024-06-07 10:26 | disposition home or self-care (01) ==
PROVIDERS: Emergency Provider Emergency Medicine; PCP Family Medicine
DX: S82.62XA Displaced fracture of lateral malleolus of left fibula, initial encounter for closed fracture (principal); X50.1XXA Overexertion from prolonged static or awkward postures, initial encounter; Y93.02 Activity, running
CPT/HCPCS: 29515; 73610; 93971; 99283; 99284

== ENCOUNTER → 2025-08-06 16:59 | Outpatient (CLI) | payer OTHER, SELFPAY ==
[2025-08-06 18:42] LABS: Hepatitis B Surface Antigen NEGATIVE s/c (NEGATIVE)
[2025-08-06 19:01] LABS: Urine N gonorrhoeae NOT DETECTED
[2025-08-06 19:02] LABS: HIV 1 & 2 Ab/Ag 4th Gen Combo NEGATIVE (NEGATIVE); Hep C Virus Ab w/Reflex Quant NEGATIVE s/c (NEGATIVE)
[2025-08-06 19:42] LABS: Urine Chlamydia NOT DETECTED
== END ==
PROVIDERS: PCP Family Medicine; Referring Provider Nurse Practitioner Family; Visit Provider Nurse Practitioner Family
DX: Z11.3 Encounter for screening for infections with a predominantly sexual mode of transmission (principal)
CPT/HCPCS: 36415; 86592; 86803; 87210; 87340; 87389; 87491; 87529; 87591